=== PATIENT | male | born 1995 | race Caucasian/White ===

== ENCOUNTER 2024-11-26 12:54 | Emergency (ER) | payer OTHER ==
[2024-11-26 13:27] LABS: BASOPHILS PERCENT AUTO 0.3 % (0.0-1.0); EOSINOPHILS PERCENT AUTO 0.5 % (1.0-3.0); HEMATOCRIT 43.6 % (40.0-54.0); HEMOGLOBIN 15.2 g/dL (14.0-18.0); LYMPHOCYTES PERCENT AUTO 22.7 % (20.5-50.1); MEAN CORPUSCULAR HEMOGLOBIN 30.5 pg (27.0-34.0); MEAN CORPUSCULAR HGB CONC 34.9 g/dL (33.0-35.0); MEAN CORPUSCULAR VOLUME 87.4 fL (80-100); MONOCYTES PERCENT AUTO 8.2 % (2-8); NEUTROPHILS PERCENT AUTO 68.3 % (42.2-75.2); PLATELET COUNT,PLT 222 10^3/uL (150-450); RED BLOOD CELL COUNT 4.99 10^6/uL (4.6-6.2); WHITE BLOOD CELL COUNT,WBC 7.4 10^3/uL (5.0-10.0)
[2024-11-26 13:50] LABS: A/G RATIO 1.2; ALBUMIN 4.4 g/dL (3.4-5.0); ANION GAP 12.6 mEq/L (7-13); BILIRUBIN TOTAL 1.2 mg/dL (0.2-1.0); BUN/CREATININE RATIO 8.8 (No establ ref range); CALCIUM 9.4 mg/dL (8.5-10.1); CREATININE 1.02 mg/dL (0.70-1.30); EST CRCL DRUG DOSING (CG) 99.01 mL/min; MAGNESIUM 1.9 mg/dL (1.8-2.4); POTASSIUM,K 3.6 mmol/L (3.5-5.1)
[2024-11-26] MEDS: Nicotine Polacrilex 2 MG Gum CHEW ONE (14:28)
[2024-11-26] MEDS: Take Home: Azithromycin 250 MG, 2 Tab Pack PO ONE (15:54)
[2024-11-26] MEDS: Take Home: predniSONE 20 MG, 4 Tab Pack PO ONE (15:54)
== END 2024-11-26 16:10 | disposition home or self-care (01) ==
LOC: DL.ED 12:54
DX: J02.0 Streptococcal pharyngitis (principal); F17.220 Nicotine dependence, chewing tobacco, uncomplicated
CPT/HCPCS: 71045; 80053; 83735; 84484; 85025; 87428; 99283; 99285; A9270

== ENCOUNTER 2024-11-27 18:27 | Emergency (ER) | payer OTHER ==
[2024-11-27] MEDS: Iopamidol 612 MG/ML 100 ML Bottle IVPUSH ONE (19:58)
[2024-11-27 20:13] LABS: BASOPHILS PERCENT AUTO 0.2 % (0.0-1.0); HEMATOCRIT 45.8 % (40.0-54.0); HEMOGLOBIN 16.1 g/dL (14.0-18.0); LYMPHOCYTES PERCENT AUTO 7.9 % (20.5-50.1); MEAN CORPUSCULAR HEMOGLOBIN 30.8 pg (27.0-34.0); MEAN CORPUSCULAR HGB CONC 35.2 g/dL (33.0-35.0); MEAN CORPUSCULAR VOLUME 87.6 fL (80-100); MONOCYTES PERCENT AUTO 2.7 % (2-8); NEUTROPHILS PERCENT AUTO 89.2 % (42.2-75.2); PLATELET COUNT,PLT 257 10^3/uL (150-450); RED BLOOD CELL COUNT 5.23 10^6/uL (4.6-6.2); WHITE BLOOD CELL COUNT,WBC 11.2 10^3/uL (5.0-10.0)
[2024-11-27] MEDS: Sodium Chloride 0.9% 1,000 ML IV ONE (20:15)
[2024-11-27] MEDS: Ketorolac 30 MG/ML SDV IVPUSH ONE (20:15)
[2024-11-27] MEDS: Famotidine 20 MG/2 ML SDV IVPUSH ONE (20:15)
[2024-11-27 20:36] LABS: A/G RATIO 1.2; ALBUMIN 4.7 g/dL (3.4-5.0); ANION GAP 14.5 mEq/L (7-13); BILIRUBIN TOTAL 1.5 mg/dL (0.2-1.0); BUN/CREATININE RATIO 10.3 (No establ ref range); CALCIUM 9.7 mg/dL (8.5-10.1); CREATININE 0.97 mg/dL (0.70-1.30); EST CRCL DRUG DOSING (CG) 104.11 mL/min; LACTIC ACID 1.3 mmol/L (0.4-2.0); POTASSIUM,K 4.5 mmol/L (3.5-5.1); PROTEIN TOTAL,TP 8.5 g/dL (6.4-8.2)
== END 2024-11-27 22:11 | disposition home or self-care (01) ==
LOC: DL.ED 18:27
DX: K21.9 Gastro-esophageal reflux disease without esophagitis (principal)
CPT/HCPCS: 36415; 70491; 80053; 83605; 84484; 85025; 93005; 96374; 96375; 99285; J1885; J7030; Q9967